=== PATIENT | female | born 1970 | race Caucasian/White ===

== ENCOUNTER 2016-12-20 07:32 | Observation (INO) | payer OTHER ==
[~2016-12-20] VITALS: Ht 175.3 cm; Wt 101.4 kg
[~2016-12-20 07:32] MED LIST: ALLERGY RELIEF PO; IBUP200C8 PO; LISI1TAB7 PO; LORA10TA3 PO; METH5TAB6 PO; [UNRECOGNIZED DRUG - OTHER] PO; [UNRECOGNIZED DRUG - OTHER] PO; [UNRECOGNIZED DRUG - REMARK] PO
[2016-12-20] MEDS ORDERED: HYDROcodone/APAP 7.5-325MG/15ML UDC PO PRN (08:30)
[2016-12-20] MEDS ORDERED: ONDANSETRON 2MG/ML, 2ML IVPush PRN ×2 (08:30→09:00)
[2016-12-20] MEDS ORDERED: ACETAMINOPHEN 325 MG TABLET PO PRN (08:30)
[2016-12-20] MEDS ORDERED: LABETALOL 5MG/ML, 20ML IV PRN (08:30)
[2016-12-20] MEDS ORDERED: MEPERIDINE/PF 25MG/0.5ML IVPush PRN (08:30)
[2016-12-20] MEDS ORDERED: PROMETHAZINE 25 MG/ML, 1ML IV PRN (08:30)
[2016-12-20] MEDS ORDERED: hydrALAzine 20 MG/ML, 1ML IV PRN (08:30)
[2016-12-20] MEDS ORDERED: OXYcodone 5 MG/5 ML ORAL.SOL UDC PO PRN (08:30)
[2016-12-20] MEDS ORDERED: HYDROmorphone 1 MG/ML, 1ML IV PRN ×2 (08:30→09:00)
[2016-12-20] MEDS ORDERED: MIDAZOLAM 1 MG/ML, 2ML IV PRN (08:30)
[2016-12-20 08:36] VITALS: BP 128/74
[2016-12-20] MEDS ORDERED: LACTATED RINGERS 1,000 ML IV SCH (08:50)
[2016-12-20] MEDS ORDERED: REMIFENTANIL 1 MG ONE (08:54)
[2016-12-20] MEDS ORDERED: SCOPOLAMINE PATCH, 1.5MG PATCH.TD72 TD ONE (08:54)
[2016-12-20] MEDS ORDERED: DIPHENHYDRAMINE 25 MG CAPSULE PO PRN (09:00)
[2016-12-20] MEDS ORDERED: LISINOPRIL 20 MG TABLET PO SCH ×2 (09:00→12:22)
[2016-12-20] MEDS ORDERED: LORATADINE 10 MG TABLET PO PRN (09:00)
[2016-12-20] MEDS ORDERED: DIPHENHYDRAMINE 50 MG/ML, 1ML IV PRN (09:00)
[2016-12-20] MEDS ORDERED: DEXAMETHASONE 4 MG/ML, 5ML ONE (09:01)
[2016-12-20] MEDS ORDERED: CEFAZOLIN 1,000 MG ONE (09:01)
[2016-12-20] MEDS ORDERED: PROPOFOL 10 MG/ML, 20ML ONE (09:01)
[2016-12-20] MEDS ORDERED: SUCCINYLCHOLINE 20 MG/ML, 10ML ONE (09:01)
[2016-12-20] MEDS ORDERED: POTASSIUM CHLORIDE 20 MEQ in SODIUM CHLORIDE 0.9% 250 ML IV ONE (09:30)
[2016-12-20] MEDS ORDERED: POTASSIUM CHLORIDE 20 MEQ in SODIUM CHLORIDE 0.9% 250 ML IV SCH (09:30)
[2016-12-20] MEDS ORDERED: FENTANYL PF 100 MCG/2ML ONE (10:40)
[2016-12-20] MEDS ORDERED: OXYcodone 5 MG/5 ML ORAL.SOL UDC ONE (10:41)
[2016-12-20] MEDS: FENTANYL PF 100 MCG/2ML IV PRN ×2 (10:42→10:54)
[2016-12-20] MEDS ORDERED: POTASSIUM CHLORIDE PMX 100 ML IV ONE (11:00)
[2016-12-20] MEDS ORDERED: PNEUMOCOCCAL 23 VACCINE IM-VACC ONE (12:30)
[2016-12-20] MEDS: POTASSIUM CHLORIDE 40 MEQ in D5%-0.45% NACL 1,000 ML IV SCH ×2 (13:17→20:14)
[2016-12-20] MEDS: HYDROCHLOROTHIAZIDE 25 MG TABLET PO SCH (13:23)
[2016-12-20] MEDS: HYDROmorphone 2MG TABLET PO PRN ×3 (13:28→22:01)
[2016-12-20 14:03] VITALS: BP 139/72
[2016-12-20 20:42] VITALS: BP 113/69
[2016-12-20 23:45] VITALS: BP 108/67
[2016-12-21] MEDS: POTASSIUM CHLORIDE 40 MEQ in D5%-0.45% NACL 1,000 ML IV SCH ×2 (03:00→11:10)
[2016-12-21] MEDS: HYDROmorphone 2MG TABLET PO PRN ×3 (03:51→13:36)
[2016-12-21 04:48] VITALS: BP 128/68
[2016-12-21] MEDS ORDERED: LEVOTHYROXINE 125 MCG TABLET PO SCH (06:00)
[2016-12-21 06:45] VITALS: BP 111/75
[2016-12-21] MEDS: HYDROCHLOROTHIAZIDE 25 MG TABLET PO SCH (09:00)
[2016-12-21] MEDS ORDERED: CALCIUM CARBONATE 500 MG TAB.CHEW PO ONE (09:30)
[2016-12-21 09:35] VITALS: BP 106/67
[2016-12-21] MEDS ORDERED: CALCIUM CARBONATE 500 MG TAB.CHEW PO SCH (10:00)
[2016-12-21] MEDS ORDERED: CALC300T5 PO (13:09)
[2016-12-21] MEDS ORDERED: HYDR2TAB13 PO ×2 (13:21→14:40)
[2016-12-21] MEDS ORDERED: LEVO125T PO ×2 (13:21→14:39)
[2016-12-21 13:42] VITALS: BP 120/67
== END 2016-12-21 15:05 | disposition home or self-care (01) ==
LOC: OR 07:32 → ORIP 08:52 → 4NOR 12:13 → DCLOUNGE 12-21 14:28
PROVIDERS: ADMIT Surgery; ATTEND Surgery
DX: E06.3 Autoimmune thyroiditis (principal); E04.1 Nontoxic single thyroid nodule; E05.90 Thyrotoxicosis, unspecified without thyrotoxic crisis or storm; I10 Essential (primary) hypertension; K90.0 Celiac disease; M19.90 Unspecified osteoarthritis, unspecified site; E66.9 Obesity, unspecified; Z23 Encounter for immunization; Z90.710 Acquired absence of both cervix and uterus; Z72.0 Tobacco use; Z98.890 Other specified postprocedural states
CPT/HCPCS: 36415; 60240; 82040; 82310; 84132; 88307; 90471; 90732; 96365; 96366; 96375; C1760; G0378; J0330; J0690; J1100; J2250; J2405; J2704; J3010; J3480; J7050; J7120